=== PATIENT | male | born 1965 | race African-American/Black ===

== ENCOUNTER 2023-03-12 15:24 | Emergency (ER) | payer BC, MEDICAID ==
[2023-03-12] MEDS ORDERED: Sodium Chloride 0.9% 10 ML Syringe FLUSH PRN (15:34)
[2023-03-12 15:49] LABS: BASOPHILS ABSOLUTE AUTO 0.04 K/uL (0.00-0.10); BASOPHILS PERCENT AUTO 0.6 % (0.1-1.3); EOSINOPHILS ABSOLUTE AUTO 0.14 K/uL (0.00-0.40); EOSINOPHILS PERCENT AUTO 2.1 % (0.0-5.4); HEMATOCRIT 50.1 % (38.4-49.7); HEMOGLOBIN 17.4 g/dL (12.9-16.9); IMMATURE GRAN PERCENT AUTO 0.2 % (0.0-0.7); LYMPHOCYTES ABSOLUTE AUTO 2.16 K/uL (0.8-3.3); LYMPHOCYTES PERCENT AUTO 32.7 % (11.4-47.7); MEAN CORPUSCULAR HEMOGLOBIN 27.4 pg (31.6-35.5); MEAN CORPUSCULAR HGB CONC 34.7 g/dL (31.6-35.5); MEAN CORPUSCULAR VOLUME 78.9 fL (81.4-99.0); MONOCYTES ABSOLUTE AUTO 0.62 K/uL (0.20-0.90); MONOCYTES PERCENT AUTO 9.4 % (3.3-12.6); NEUTROPHILS ABSOLUTE AUTO 3.63 K/uL (1.0-7.6); PLATELET COUNT,PLT 283 K/uL (130-375); RED BLOOD CELL COUNT 6.35 M/uL (4.14-5.76); WHITE BLOOD CELL COUNT,WBC 6.6 K/uL (3.2-11.0)
[2023-03-12 15:51] LABS: IMMATURE GRAN ABSOLUTE AUTO 0.01 K/uL (0.00-0.23)
[2023-03-12 16:07] LABS: INR 1.1; PROTHROMBIN TIME 11.4 sec (9.2-10.6)
[2023-03-12 16:13] LABS: CALCIUM 8.7 mg/dL (8.5-10.1); CREATININE 1.6 mg/dL (0.8-1.3); EST CRCL DRUG DOSING (CG) 50.94 mL/min; MAGNESIUM 2.3 mg/dL (1.8-2.4); POTASSIUM,K 4.4 mmol/L (3.6-5.2); TROPONIN I HIGH SENSITIVITY 13.4 pg/mL (<=60.3)
[2023-03-12 16:14] LABS: ANION GAP 12.4 mmol/L (5.0-14.0)
[2023-03-12 16:26] LABS: PTT,PARTIAL THROMBOPLSTIN TIME 28.8 sec (21.8-27.3)
== END 2023-03-12 17:58 | disposition home or self-care (01) ==
LOC: JP.ED 15:24
DX: I25.5 Ischemic cardiomyopathy (principal); I48.0 Paroxysmal atrial fibrillation; E78.5 Hyperlipidemia, unspecified; I12.9 Hypertensive chronic kidney disease with stage 1 through stage 4 chronic kidney disease, or unspecified chronic kidney disease; N18.31 Chronic kidney disease, stage 3a; Z95.5 Presence of coronary angioplasty implant and graft; Z88.8 Allergy status to other drugs, medicaments and biological substances; Z79.01 Long term (current) use of anticoagulants
CPT/HCPCS: 36415; 71045; 71045-26; 80048; 82800; 83735; 84443; 84484; 85025; 85610; 85730; 93005; 99285